=== PATIENT | male | born 1960 | race Hispanic/Latino ===

== ENCOUNTER 2022-11-05 07:03 | Observation (INO) | payer BC ==
[~2022-11-05] VITALS: Ht 180.3 cm; Wt 120.7 kg
[~2022-11-05 07:03] MED LIST: AMLODIPINE PO; ATORVASTATIN CA20 MG PO; DEXILANT60 MG PO; FLOMAX0.4 MG PO; LISINOPRIL40 MG PO; LOSARTAN POTAS100 MG PO; PANTOPRAZOLE SO40 MG PO
[2022-11-05] MEDS ORDERED: ACETAMINOPHEN 1000 MG/100 ML 100 ML IV ONE (07:05)
[2022-11-05] MEDS ORDERED: DEXAMETHASONE SOD PHOS 10 MG/1 ML VIAL ONE ×2 (07:42→12:56)
[2022-11-05] MEDS ORDERED: CELECOXIB 200 MG CAP ONE (07:42)
[2022-11-05] MEDS ORDERED: GABAPENTIN 300 MG CAP ONE (07:42)
[2022-11-05] MEDS ORDERED: LACTATED RINGER'S 1,000 ML ONE (07:43)
[2022-11-05] MEDS ORDERED: CEFAZOLIN SODIUM 2 GM ONE (07:43)
[2022-11-05] MEDS ORDERED: ROPIVACAINE 246.25 MG, EPINEPHRINE HCL 1:1000 1ML 0.5 MG, CLONIDINE HCL 0.08 MG, KETORO... INJ ONE ×5 (08:00)
[2022-11-05] MEDS ORDERED: Vancomycin IV 1,000 MG ONE (09:10)
[2022-11-05] MEDS ORDERED: TRANEXAMIC ACID 20 ML ONE (09:10)
[2022-11-05] MEDS ORDERED: SODIUM CHLORIDE 0.9% 500ML 500 ML ONE (09:10)
[2022-11-05] MEDS ORDERED: DIPHENHYDRAMINE HCL INJ 50 MG/ML VIAL IV PRN (12:00)
[2022-11-05] MEDS ORDERED: HYDROCODONE/APAP 5MG-325MG TAB PO PRN (12:00)
[2022-11-05] MEDS ORDERED: ONDANSETRON HCL INJ 2MG/ML 2ML 2 MG/ML VIAL IV PRN (12:00)
[2022-11-05] MEDS ORDERED: KETOROLAC TROMETHAMINE 30 MG/ML VIAL IV PRN (12:00)
[2022-11-05] MEDS ORDERED: DOCUSATE SODIUM 100 MG CAP PO PRN (12:00)
[2022-11-05] MEDS ORDERED: ACETAMINOPHEN 650 MG SUPP PR PRN (12:00)
[2022-11-05] MEDS ORDERED: HYDROCODONE/APAP 7.5MG-325MG 1 EA TAB PO PRN (12:00)
[2022-11-05] MEDS ORDERED: FENTANYL CITRATE/PF 100MCG/2 ML INJ ONE (12:23)
[2022-11-05] MEDS ORDERED: MIDAZOLAM HCL 2 MG/2 ML VIAL ONE (12:23)
[2022-11-05] MEDS ORDERED: POVIDONE IODINE 0.05% 0.05 % ML PO ONE (12:50)
[2022-11-05] MEDS ORDERED: SEVOFLURANE INHAL SOLN 250 ML PEN BTL ONE (12:50)
[2022-11-05] MEDS ORDERED: PROPOFOL IV EMULSION 10 MG/ML 20 ML VIAL ONE (12:50)
[2022-11-05] MEDS ORDERED: DEXAMETHASONE SOD PHOS INJ 4 MG/ML SDV ONE (12:50)
[2022-11-05] MEDS ORDERED: KETOROLAC TROMETHAMINE 30 MG/ML VIAL ONE (12:50)
[2022-11-05] MEDS ORDERED: LIDOCAINE HCL 2% LOCAL INJ 5 ML SDV VIAL INJ ONE (12:50)
[2022-11-05] MEDS ORDERED: ONDANSETRON HCL INJ 2MG/ML 2ML 2 MG/ML VIAL ONE (12:50)
[2022-11-05] MEDS ORDERED: ROPIVACAINE 0.5% 5 MG/ML 30 ML SDV ONE (12:56)
[2022-11-05 17:04] VITALS: BP 147/89
[2022-11-05] MEDS ORDERED: SODIUM CHLORIDE 0.9% 1000ML 1,000 ML IV SCH (17:30)
[2022-11-05] MEDS ORDERED: CELECOXIB 200 MG CAP PO SCH (18:00)
[2022-11-05] MEDS ORDERED: ZOLPIDEM TARTRATE 5 MG TAB PO PRN (21:00)
[2022-11-05] MEDS ORDERED: ASPIRIN 325 MG TAB PO SCH (21:00)
[2022-11-06] MEDS ORDERED: ACETAMINOPHEN 1000 MG/100 ML IV PRN (12:00)
== END 2022-11-05 18:20 | disposition home or self-care (01) ==
LOC: OR 07:03 → PACU V 11:54 → MED/SURG 16:34
PROVIDERS: ADMIT Specialist; ATTEND Specialist
DX: M17.11 Unilateral primary osteoarthritis, right knee (principal); I10 Essential (primary) hypertension; Z88.5 Allergy status to narcotic agent; Z01.810 Encounter for preprocedural cardiovascular examination; Z01.812 Encounter for preprocedural laboratory examination; Z01.818 Encounter for other preprocedural examination
CPT/HCPCS: 0223U; 20680; 27447; 36415; 73560; 86850; 86900; 86920; 97110; 97116; 97161; C1713 ×2; C1776 ×3; G0378; J0131; J0171; J1100 ×2; J1885; J2001; J2250; J2405; J2704; J2795; J3010; J3370; J7040; J7121